=== PATIENT | female | born 1945 | race Caucasian/White ===

== ENCOUNTER 2018-09-23 15:40 | Emergency (ER) | payer MEDICARE ==
[~2018-09-23] VITALS: Ht 157.5 cm; Wt 108.9 kg
--- NOTE | 2018-09-23 16:24 | ED Head Injury ---
General Chief Complaint: Trauma-Non Activation Stated Complaint: FALL Nursing Triage Note: PT STATES SHE TRIPPED HIT FACE FIRST. PT HAS HEMATOMA OVER RIGHT EYE. PT DENIES LOC. PT STATES TAKEN A DAILY ASA. PT DENIES N/V/D/FEVER. Source: patient Exam Limitations: no limitations History of Present Illness Date Seen by Provider: Sep 23, 2018 Time Seen by Provider: 16:22 Initial Comments To ER with reports of a fall. [place] first striking the right side of her face. No loss of consciousness, recalls all events, no headache no nausea or vomiting no neck pain. She has some bruising to the right cheek and right eyebrow. She is on aspirin daily but no other anticoagulant. Occurred: just prior to arrival Severity: moderate Location: frontal Method of Injury: fell Loss of Consciousness: no loss of consciousness Allergies and Home Medications Patient Home Medication List Home Medication List Reviewed: Yes Review of Systems Review of Systems Constitutional: see HPI Eyes: See HPI Ears, Nose, Mouth, Throat: see HPI Respiratory: no symptoms reported Cardiovascular: no symptoms reported Genitourinary: no symptoms reported Musculoskeletal: no symptoms reported Skin: no symptoms reported Psychiatric/Neurological: No Symptoms Reported Past Skqnxbj-[id number]-[id number] Hx Patient Social History Recent Foreign Travel: No Contact w/Someone Who Travel: No Recent Infectious Disease Expo: No Physical Exam Vital Signs Vital Signs - First Documented 09/23/18 15:52 Temp 97.6 Pulse 78 Resp 18 Capillary Refill : Less Than 3 Seconds Height, Weight, BMI Height: 5'2.00" Weight: 240lbs. oz. [id number]; BMI Method:Stated General Appearance: WD/WN, no apparent distress HEENT: PERRL/EOMI, normal ENT inspection, TMs normal, other (hematoma over the right eyebrow without laceration) Neck: non-tender, full range of motion Respiratory: no respiratory distress, no accessory muscle use Extremities: normal range of motion, non-tender Psychiatric: alert, oriented x 3 Crainal Nerves: normal hearing, normal speech, PERRL Skin: normal color, warm/dry, ecchymosis (over the right cheek and right eye brow) [place] Coma Score Best Eye Response: (4) Open Spontaneously Best Verbal Response: (5) Oriented Best Motor Response: (6) Obeys Commands Maryse Total: 15 Progress/Results/Core Measures Results/Orders My Orders Orders - PATRICIA KILLIAN APRN Ct Head/Face/Cervical Wo (09/23/18 16:19) Vital Signs/I&O 09/23/18 15:52 Temp 97.6 Pulse 78 Resp 18 B/P (MAP) Departure Impression Primary Impression: Contusion Qualified Codes: S00.11XA - Contusion of right eyelid and periocular area, i nitial encounter Disposition: HOME, SELF-CARE Condition: Stable Departure-Patient Inst. Decision time for Depature: 18:03 Referrals: BRIDGET MO MD (PCP/Family) Primary Care Physician Patient Instructions: Contusion (DC) Add. Discharge Instructions: 1. Return to ER for any concerns 2. Follow-up with your doctor next week 3. All discharge instructions reviewed with patient and/or family. Voiced understanding. PATRICIA KILLIAN APRN Sep 23, 2018 16:24
--- NOTE | 2018-09-23 18:00 | Diagnostic Imaging Report ---
PROCEDURE: CT head, face, and cervical spine without contrast. TECHNIQUE: Multiple contiguous axial images were obtained through the head, neck, and facial bones without the use of intravenous contrast. Sagittal and coronal reformations through the cervical spine and facial bones were also performed. Auto Exposure Controls were utilized during the CT exam to meet ALARA standards for radiation dose reduction. INDICATION: Fall with head, face and neck injury. COMPARISON: No prior studies are available for comparison. FINDINGS: CT HEAD: There is soft tissue swelling right periorbital and right frontal scalp region. Ventricles and sulci are within normal limits. No sulcal effacement or midline shift is seen. No acute intra-axial or extra-axial hemorrhage is detected. No depressed calvarial fracture is seen. IMPRESSION: Right frontal scalp swelling. No acute intracranial process is detected. CT CERVICAL SPINE: Minimal anterolisthesis of C3 on C4 is seen. There is mild retrolisthesis of C5 on C6. Severe degenerative disc disease is identified at multiple levels, greatest at C4-5, C5-6 and C6-7 levels, with disc space narrowing and marginal spurring. There is multilevel facet arthropathy. No fractures are seen. Prevertebral tissues are within normal limits. Odontoid is intact. IMPRESSION: Cervical spondylosis. No acute bony abnormalities detected. CT FACE: The mandible is intact. Zygomatic arches are intact. No maxillary sinus wall fracture is seen. No displaced nasal bone fracture is seen. The orbital puri and globes appear intact. There is some mild periorbital soft tissue swelling as well as moderate soft tissue swelling in the right frontal scalp. Visualized paranasal sinuses are clear. IMPRESSION: Right frontal scalp swelling. No facial bone fracture is detected. Dictated by: Dictated on workstation # [id number]
[2018-09-23 18:18] VITALS: BP 176/84
== END 2018-09-23 18:18 | disposition home or self-care (01) ==
LOC: ER 15:42
DX: S00.11XA Contusion of right eyelid and periocular area, initial encounter (principal); R40.2142 Coma scale, eyes open, spontaneous, at arrival to emergency department; R40.2252 Coma scale, best verbal response, oriented, at arrival to emergency department; R40.2362 Coma scale, best motor response, obeys commands, at arrival to emergency department; W01.198A Fall on same level from slipping, tripping and stumbling with subsequent striking against other object, initial encounter
CPT/HCPCS: 70450; 70486; 72125